=== PATIENT | female | born 1995 | race Asian ===

== ENCOUNTER 2018-03-07 14:53 | Emergency (ER) | payer OTHER ==
[~2018-03-07] VITALS: Ht 167.6 cm; Wt 58.1 kg
[2018-03-07] MEDS ORDERED: methylPREDNISolone 125 MG (Solu-MEDROL) VIAL IVP ONE (15:00)
[2018-03-07] MEDS ORDERED: FAMOTIDINE 20 MG (PEPCID) TABLET PO ONE (15:00)
[2018-03-07] MEDS ORDERED: diphenhydrAMINE 50 MG/ML INJ (BENADRYL) IVP ONE (15:00)
--- NOTE | 2018-03-07 15:08 | ED EENT ---
History of Present Illness General Stated Complaint: ALLERGIC REACTION Source: patient Exam Limitations: no limitations History of Present Illness Date Seen by Provider: Mar 07, 2018 Time Seen by Provider: 15:02 Initial Comments To ER with reports of an allergic reaction. The symptoms began last night. She reports facial itching and eye swelling bilaterally. She is not taken any medications at home for this. She denies any sensation of tongue or airway swelling, no cough or shortness of breath, no nausea vomiting diarrhea abdominal cramping. No rash. She has never had these symptoms before. She is not sure what she may have been exposed to that caused this. she denies any sneezing or rhinorrhea Timing/Duration: abrupt, this evening Location: eye (R), eye (L), facial Associated Symptoms: No cough, No drooling, No ear drainage, No facial pain/ swelling, No nasal congestion/drainage Allergies and Home Medications Allergies Coded Allergies: No Known Drug Allergies (Unverified , 03/07/18) Home Medications Prednisone 20 Mg Tab, 40 MG PO ONCE Prescribed by: JENELLE HUTSON on 03/07/18 1180 Patient Home Medication List Home Medication List Reviewed: Yes Review of Systems Review of Systems Constitutional: see HPI Eyes: See HPI Ears: No Symptoms Reported Nose: no symptoms reported Mouth: see HPI Throat: see HPI Respiratory: see HPI Cardiovascular: no symptoms reported Musculoskeletal: no symptoms reported Skin: no symptoms reported Neurological: No Symptoms Reported Hematologic/Lymphatic: No Symptoms Reported Past [id number] Hx Patient Social History Recent Foreign Travel: No Contact w/Someone Who Travel: No Physical Exam Height, Weight, BMI Height: '" Weight: lbs. oz. kg; BMI Method: General Appearance: WD/WN, no apparent distress Eyes: bilateral eye normal inspection, bilateral eye PERRL, bilateral eye EOMI , bilateral eye other (extraocular muscles are intact. No scleral injection, no conjunctival erythema or chemosis. No rhinorrhea. No tongue or uvula swelling. No facial rash or hives or lesions.) Mouth/Throat: normal mouth inspection, pharynx normal Neck: non-tender, full range of motion Cardiovascular: regular rate, rhythm, no murmur Respiratory: normal breath sounds, no respiratory distress, no accessory muscle use Neurologic/Psychiatric: alert, normal mood/affect, oriented x 3 Skin: normal color, warm/dry Progress/Results/Core Measures Results/Orders My Orders Orders - JENELLE HUTSON APRN Diphenhydramine Injection (Benadryl Inje (03/07/18 15:00) Methylprednisolone Sod Succ (Solu-Medrol (03/07/18 15:00) Famotidine Tablet (Pepcid Tablet) (03/07/18 15:00) Iv Heplock-Insert (Order) (03/07/18 15:00) Lorazepam Injection (Ativan Injection) (03/07/18 15:45) Medications Given in ED Current Medications Medications Dose Ordered Sig/Sruthi Route Start Time Stop Time Status Last Admin Dose Admin Diphenhydramine HCl 25 mg ONCE ONCE IVP 03/07/18 15:00 03/07/18 15:02 DC 03/07/18 15:13 25 MG Famotidine 20 mg ONCE ONCE PO 03/07/18 15:00 03/07/18 15:02 DC 03/07/18 15:13 20 MG Lorazepam 0.5 mg ONCE PRN IVP 03/07/18 15:45 03/07/18 15:41 0.5 MG Methylprednisolone Sodium Succinate 125 mg ONCE ONCE IVP 03/07/18 15:00 03/07/18 15:02 DC 03/07/18 15:14 125 MG Departure Communication (Admissions) 1531-patient states that her face is more itchy after the Benadryl. We will give 0.5 mg IV lorazepam. 1604- patient is now feeling much better. We will discharge to home. Impression Primary Impression: facial itching Additional Impression: Allergic reaction Disposition: HOME, SELF-CARE Condition: Stable Departure-Patient Inst. Decision time for Depature: 15:07 Referrals: UNKNOWN (PCP) Primary Care Physician NO,LOCAL PHYSICIAN (Family) Primary Care Physician Patient Instructions: Allergy Testing Add. Discharge Instructions: 1. Take a Benadryl tablet. One tablet every 4 hours as needed for itching. Do this for the next day. Follow-up with your regular doctor or if you do not have one [facility] Scripts Prednisone (Prednisone) 20 Mg Tab 40 MG PO ONCE, #2 TAB Prov: JENELLE HUTSON APRN 03/07/18 JENELLE HUTSON APRN Mar 07, 2018 15:08
[2018-03-07] MEDS ORDERED: LORazepam INJ 2 MG/ML (ATIVAN) VIAL IVP PRN (15:45)
[2018-03-07] MEDS ORDERED: PRD20T PO (16:04)
[2018-03-07 16:19] VITALS: BP 104/65
== END 2018-03-07 16:19 | disposition home or self-care (01) ==
LOC: EDUNIT# 14:53 → ER 14:54
DX: T78.40XA Allergy, unspecified, initial encounter (principal); L25.9 Unspecified contact dermatitis, unspecified cause; Z79.52 Long term (current) use of systemic steroids
CPT/HCPCS: 96374; 96375